=== PATIENT | male | born 1955 | race Caucasian/White ===

== ENCOUNTER 2017-08-26 08:52 | Emergency (ER) | payer SELFPAY ==
[~2017-08-26] VITALS: Ht 172.7 cm; Wt 75.0 kg
[2017-08-26 09:40] LABS: BASOPHILS % 0.5 % (0.0-2.0); CHLORIDE 106 mEq/L (98-107); EOSINOPHILS % 0.6 % (0.0-5.0); HEMATOCRIT. 47.1 % (42.0-52.0); HEMOGLOBIN. 16.5 g/dL (14.0-18.0); LYMPHOCYTES % 17.1 % (20.0-50.0); MEAN CORPUSCULAR HEMOGLOBIN 32.7 pg (28.0-32.0); MEAN CORPUSCULAR VOLUME 93.6 fL (80.0-94.0); MEAN PLATELET VOLUME 7.7 fl (7.4-10.4); MONOCYTES % 6.1 % (2.0-8.0); NEUTROPHILS % 75.7 % (40.0-76.0); PLATELET 264 x1000/uL (130-400); RED BLOOD CELL COUNT 5.03 mill/uL (4.7-6.1); RED CELL DISTRIBUTION WIDTH 12.8 % (11.6-14.6)
[2017-08-26] MEDS: KETOROLAC 60MG/2ML VIAL IM STA (09:43)
[2017-08-26 09:49] LABS: CARBON DIOXIDE 28 mEq/L (21-32)
[2017-08-26] MEDS: ONDANSETRON 4MG ODT PO ONE (09:55)
[2017-08-26] MEDS: DIAZEPAM 5 MG TABLET PO ONE (10:14)
[2017-08-26 11:13] LABS: GLUCOSE URINE NEGATIVE (NEGATIVE); KETONES URINE TRACE (NEGATIVE); LEUKOCYTE ESTERASE URINE TRACE (NEGATIVE); NITRITE URINE NEGATIVE (NEGATIVE); OCCULT BLOOD URINE NEGATIVE (NEGATIVE); PROTEIN URINE 1+ (NEGATIVE); SPECIFIC GRAVITY URINE 1.037 (1.005-1.030)
[2017-08-26 11:14] LABS: CLARITY URINE CLOUDY (CLEAR); COLOR URINE YELLOW (YELLOW)
[2017-08-26] MEDS: ONDANSETRON HCL 4MG/2ML VIAL IV STA (12:03)
[2017-08-26] MEDS: MORPHINE SULFATE 2 MG/ML CPJ (NOT FOR IM USE) IV ONE (13:09)
[2017-08-26 13:43] VITALS: BP 110/70
== END 2017-08-26 13:57 | disposition home or self-care (01) ==
LOC: ER 09:01
DX: N20.0 Calculus of kidney (principal); F17.200 Nicotine dependence, unspecified, uncomplicated
CPT/HCPCS: 36415; 74176; 80053; 81001; 85025; 93005; 96372; 96374; 96375; 99285; J1885; J2270; J2405; Q0162; Z7610